=== PATIENT | male | born 1975 | race Caucasian/White ===

== ENCOUNTER 2019-06-15 06:22 | Inpatient (IN) | payer OTHER ==
[2019-06-15] MEDS ORDERED: Sodium Chloride 0.9% 1,000 ML IV ONE (06:29)
[2019-06-15] MEDS ORDERED: Ondansetron 4 MG/2 ML SDV IVPUSH ONE (06:29)
--- NOTE | 2019-06-15 06:48 | EDM.PDOC ---
ED HPI GENERAL MEDICAL PROBLEM - General Chief Complaint: Gastrointestinal Problem Stated Complaint: SEVERE ABDOMINAL PAIN Time Seen by Provider: 06/15/19 06:28 - History of Present Illness INITIAL COMMENTS - FREE TEXT/NARRATIVE: HISTORY AND PHYSICAL: History of present illness: Patient's 44-year-old male with history of alcohol abuse presents with concern abdominal pain 2 days he's had associated nausea and vomiting he denies history of pancreatitis he denies trauma denies fever chills chest pain or shortness of breath Review of systems: As per history of present illness and below otherwise all systems reviewed and negative. Past medical history: As per history of present illness and as reviewed below otherwise noncontributory. Surgical history: As per history of present illness and as reviewed below otherwise noncontributory. Social history: No reported history of drug or alcohol abuse. Family history: As per history of present illness and as reviewed below otherwise noncontributory. Physical exam: HEENT: Atraumatic, normocephalic, pupils reactive, negative for conjunctival pallor or scleral icterus, mucous membranes moist, throat clear, neck supple, nontender, trachea midline. Lungs: Clear to auscultation, breath sounds equal bilaterally, chest nontender. Heart: S1S2, regular, negative for clicks, rubs, or JVD. Abdomen: Soft, protuberant nonlocalized tenderness no rebound or guarding. Negative for masses or hepatosplenomegaly. Negative for costovertebral tenderness. Pelvis: Stable nontender. Genitourinary: Deferred. Rectal: Deferred. Extremities: Atraumatic, negative for cords or calf pain. Neurovascular unremarkable. Neuro: Awake, alert, oriented. Cranial nerves II through XII unremarkable. Cerebellum unremarkable. Motor and sensory unremarkable throughout. Exam nonfocal. Diagnostics: CBC CMP lipase UA urine drug screen chest x-ray CT abdomen and pelvis Therapeutics: Saline 1 L bolus Zofran 4 mg IV Impression: #1 abdominal pain #2 alcohol abuse Definitive disposition and diagnosis as appropriate pending reevaluation and review of above. Middle Abdomen Pain Score (Numeric/FACES): 5 - Related Data Allergies Allergy/AdvReac Type Severity Reaction Status Date / Time No Known Allergies Allergy Verified 06/15/19 06:41 Home Meds: Home Meds . [No Known Home Meds] 06/15/19 [History] Past Medical History - Past Health History Medical/Surgical History: Denies Medical/Surgical History HEENT History: Reports: None Cardiovascular History: Reports: None Respiratory History: Reports: None Gastrointestinal History: Reports: None Genitourinary History: Reports: None Musculoskeletal History: Reports: None Neurological History: Reports: None Psychiatric History: Reports: Anxiety, Depression Endocrine/Metabolic History: Reports: None Hematologic History: Reports: None Immunologic History: Reports: None Oncologic (Cancer) History: Reports: None Dermatologic History: Reports: None - Infectious Disease History Infectious Disease History: Reports: Chicken Pox - Past Surgical History Head Surgeries/Procedures: Reports: None Social & Family History - Tobacco Use Smoking Status *Q: Never Smoker - Recreational Drug Use Recreational Drug Use: No ED ROS GENERAL - Review of Systems Review Of Systems: Comprehensive ROS is negative, except as noted in HPI. ED EXAM, GENERAL - Physical Exam Exam: See Below (See dictation) Course - Vital Signs Last Recorded V/S: Last Vital Signs Temp 35.9 C 06/15/19 06:37 Pulse 84 06/15/19 06:37 Resp 18 06/15/19 06:37 BP 112/64 06/15/19 06:37 Pulse Ox 97 06/15/19 06:37 - Orders/Labs/Meds Orders: Active Orders 24 hr Category Date Time Status cefOXitin [Mefoxin] 2 gm Med 06/15/19 07:40 Ordered Sodium Chloride 0.9% [Normal Saline] 100 ml IV ONETIME Labs: Laboratory Tests 06/15/19 06/15/19 06/15/19 Range/Units 06:37 06:37 06:42 WBC 13.84 H (4.0-11.0) K/uL RBC 4.94 (4.50-5.90) M/uL Hgb 15.6 (13.0-17.0) g/dL Hct 43.9 (38.0-50.0) % MCV 88.9 (80.0-98.0) fL MCH 31.6 (27.0-32.0) pg MCHC 35.5 (31.0-37.0) g/dL RDW Std Deviation 41.0 (28.0-62.0) fl RDW Coeff of Angelito 13 (11.0-15.0) % Plt Count 208 (150-400) K/uL MPV 11.50 (7.40-12.00) fL Neut % (Auto) 84.7 H (48.0-80.0) % Lymph % (Auto) 7.8 L (16.0-40.0) % [place] % (Auto) 7.4 (0.0-15.0) % Eos % (Auto) 0.0 (0.0-7.0) % Baso % (Auto) 0.1 (0.0-1.5) % Neut # (Auto) 11.7 H (1.4-5.7) K/uL Lymph # (Auto) 1.1 (0.6-2.4) K/uL [place] # (Auto) 1.0 H (0.0-0.8) K/uL Eos # (Auto) 0.0 (0.0-0.7) K/uL Baso # (Auto) 0.0 (0.0-0.1) K/uL Nucleated RBC % 0.0 /100WBC Nucleated RBCs # 0 K/uL INR Sodium (136-148) mmol/L Potassium (3.5-5.1) mmol/L Chloride (98-107) mmol/L Carbon Dioxide (21.0-32.0) mmol/L BUN (7.0-18.0) mg/dL Creatinine (0.8-1.3) mg/dL Est Cr Clr Drug Dosing mL/min Estimated GFR (MDRD) ml/min Glucose (74-106) mg/dL Calcium (8.5-10.1) mg/dL Total Bilirubin (0.2-1.0) mg/dL AST (15-37) IU/L ALT (14-63) IU/L Alkaline Phosphatase (46-116) U/L Total Protein (6.4-8.2) g/dL Albumin (3.4-5.0) g/dL Globulin (2.6-4.0) g/dL Albumin/Globulin Ratio (0.9-1.6) Lipase (73-393) U/L Urine Color YELLOW Urine Appearance CLEAR Urine pH 6.0 (5.0-8.0) Ur Specific [place] 1.025 (1.001-1.035) Urine Protein NEGATIVE (NEGATIVE) mg/dL Urine Glucose (UA) NEGATIVE (NEGATIVE) mg/dL Urine Ketones NEGATIVE (NEGATIVE) mg/dL Urine Occult Blood NEGATIVE (NEGATIVE) Urine Nitrite NEGATIVE (NEGATIVE) Urine Bilirubin NEGATIVE (NEGATIVE) Urine Urobilinogen 0.2 (<2.0) EU/dL Ur Leukocyte Esterase NEGATIVE (NEGATIVE) Urine Opiates Screen NEGATIVE (NEGATIVE) Ur Oxycodone Screen NEGATIVE (NEGATIVE) Urine Methadone Screen NEGATIVE (NEGATIVE) Ur Barbiturates Screen NEGATIVE (NEGATIVE) Ur Phencyclidine Scrn NEGATIVE (NEGATIVE) Ur Amphetamine Screen NEGATIVE (NEGATIVE) U Methamphetamines Scrn NEGATIVE (NEGATIVE) U Benzodiazepines Scrn NEGATIVE (NEGATIVE) U Cocaine Metab Screen NEGATIVE (NEGATIVE) U Marijuana (THC) Screen NEGATIVE (NEGATIVE) Ethyl Alcohol mg/dL 06/15/19 06/15/19 Range/Units 06:42 06:42 WBC (4.0-11.0) K/uL RBC (4.50-5.90) M/uL Hgb (13.0-17.0) g/dL Hct (38.0-50.0) % MCV (80.0-98.0) fL MCH (27.0-32.0) pg MCHC (31.0-37.0) g/dL RDW Std Deviation (28.0-62.0) fl RDW Coeff of [place] (11.0-15.0) % Plt Count (150-400) K/uL MPV (7.40-12.00) fL Neut % (Auto) (48.0-80.0) % Lymph % (Auto) (16.0-40.0) % [place] % (Auto) (0.0-15.0) % Eos % (Auto) (0.0-7.0) % Baso % (Auto) (0.0-1.5) % Neut # (Auto) (1.4-5.7) K/uL Lymph # (Auto) (0.6-2.4) K/uL [place] # (Auto) (0.0-0.8) K/uL Eos # (Auto) (0.0-0.7) K/uL Baso # (Auto) (0.0-0.1) K/uL Nucleated RBC % /100WBC Nucleated RBCs # K/uL INR 0.98 Sodium 136 (136-148) mmol/L Potassium 3.6 (3.5-5.1) mmol/L Chloride 102 (98-107) mmol/L Carbon Dioxide 23.5 (21.0-32.0) mmol/L BUN 12 (7.0-18.0) mg/dL Creatinine 1.2 (0.8-1.3) mg/dL Est Cr Clr Drug Dosing 87.12 mL/min Estimated GFR (MDRD) > 60.0 ml/min Glucose 116 H (74-106) mg/dL Calcium 8.8 (8.5-10.1) mg/dL Total Bilirubin 1.0 (0.2-1.0) mg/dL AST 15 (15-37) IU/L ALT 49 (14-63) IU/L Alkaline Phosphatase 77 (46-116) U/L Total Protein 8.1 (6.4-8.2) g/dL Albumin 4.0 (3.4-5.0) g/dL Globulin 4.1 H (2.6-4.0) g/dL Albumin/Globulin Ratio 1.0 (0.9-1.6) Lipase 74 (73-393) U/L Urine Color Urine Appearance Urine pH (5.0-8.0) Ur Specific [place] (1.001-1.035) Urine Protein (NEGATIVE) mg/dL Urine Glucose (UA) (NEGATIVE) mg/dL Urine Ketones (NEGATIVE) mg/dL Urine Occult Blood (NEGATIVE) Urine Nitrite (NEGATIVE) Urine Bilirubin (NEGATIVE) Urine Urobilinogen (<2.0) EU/dL Ur Leukocyte Esterase (NEGATIVE) Urine Opiates Screen (NEGATIVE) Ur Oxycodone Screen (NEGATIVE) Urine Methadone Screen (NEGATIVE) Ur Barbiturates Screen (NEGATIVE) Ur Phencyclidine Scrn (NEGATIVE) Ur Amphetamine Screen (NEGATIVE) U Methamphetamines Scrn (NEGATIVE) U Benzodiazepines Scrn (NEGATIVE) U Cocaine Metab Screen (NEGATIVE) U Marijuana (THC) Screen (NEGATIVE) Ethyl Alcohol < 3.0 mg/dL Meds: Medications Discontinued Medications Generic Name Dose Route Start Last Admin Trade Name Freq PRN Reason Stop Dose Admin Sodium Chloride 1,000 mls @ 999 mls/hr 06/15/19 06:29 06/15/19 06:47 Normal Saline IV 06/15/19 07:29 999 mls/hr STAT ONE Administration Ondansetron HCl 4 mg 06/15/19 06:29 06/15/19 06:47 Zofran IVPUSH 06/15/19 06:30 4 mg ONETIME ONE Administration Departure - Departure Time of Disposition: 06:48 Disposition: Admitted As Inpatient 67 Condition: Good Clinical Impression: Abdominal pain, Alcohol abuse, Appendicitis - Discharge Information Referrals: PCP,None [Primary Care Provider] - Forms: ED Department Discharge - My Orders Last 24 Hours: My Active Orders 06/15/19 07:40 cefOXitin [Mefoxin] 2 gm Sodium Chloride 0.9% [Normal Saline] 100 ml IV ONETIME - Assessment/Plan Last 24 Hours: My Active Orders 06/15/19 07:40 cefOXitin [Mefoxin] 2 gm Sodium Chloride 0.9% [Normal Saline] 100 ml IV ONETIME
[2019-06-15 07:12] LABS: BLOOD UREA NITROGEN,BUN 12 mg/dL (7.0-18.0); CARBON DIOXIDE,CO2 23.5 mmol/L (21.0-32.0); CHLORIDE,CL 102 mmol/L (98-107); GLUCOSE RANDOM 116 mg/dL (74-106); LIPASE 74 U/L (73-393); POTASSIUM,K 3.6 mmol/L (3.5-5.1); SODIUM,NA 136 mmol/L (136-148)
--- NOTE | 2019-06-15 07:35 | CR ---
INDICATION: Chest and abdominal pain. COMPARISON: none TECHNIQUE: PA chest performed at 6:46 a.m. FINDINGS: The lungs are clear. There is no evidence of pneumothorax or free intraperitoneal air. The heart, mediastinum and pulmonary vessels are of normal size. There is no evidence of pleural fluid. IMPRESSION: Negative chest. Dictated by Milton Villarreal MD @ Jun 15 2019 7:33AM Signed by Dr. Milton Villarreal @ Jun 15 2019 7:34AM
--- NOTE | 2019-06-15 07:39 | CT ---
Indication: Abdominal pain Technique: A CT volumetric acquisition was performed of the abdomen and pelvis without IV contrast. Comparison: None Findings: CT images demonstrate a normal appearance of the lung bases. The unenhanced liver, spleen and pancreas appear normal. The gallbladder and bile ducts appear normal. The adrenal glands have normal morphology. Kidneys are symmetric in size and there is no evidence of renal calculus or hydronephrosis. There is no evidence of retroperitoneal lymphadenopathy within the abdomen and pelvis. There is acute inflammation within the appendix with inflammatory stranding within the periappendiceal fat and thickening of the posterior peritoneal surfaces. There is no evidence of abscess formation. There is no evidence of obstruction within the small intestine. The colon appears normal. The prostate gland and urinary bladder appear normal. Impression: Acute appendicitis changes. There is phlegmon formation within the right lower quadrant but no evidence of drainable abscess. Please note that all CT scans at this facility use dose modulation, iterative reconstruction, and/or weight-based dosing when appropriate to reduce radiation dose to as low as reasonably achievable. Dictated by Milton Villarreal MD @ Jun 15 2019 7:34AM Signed by Dr. Milton Villarreal @ Jun 15 2019 7:37AM
[2019-06-15] MEDS ORDERED: cefOXitin 2 GM in Sodium Chloride 0.9% 100 ML IV ONE (07:40)
[2019-06-15] MEDS ORDERED: Piperacillin/Tazobactam 3.375 GM in Sodium Chloride 0.9% 50 ML IV ONE (08:01)
[2019-06-15] MEDS ORDERED: Ondansetron 4 MG/2 ML SDV ONE (08:20)
[2019-06-15] MEDS ORDERED: Rocuronium 100 MG/10 ML Syringe ONE (08:20)
[2019-06-15] MEDS ORDERED: Lidocaine 2% 5 ML SDV ONE (08:20)
[2019-06-15] MEDS ORDERED: fentaNYL 250 MCG/5 ML SDV ONE (08:20)
[2019-06-15] MEDS ORDERED: Midazolam 1 MG/ML 2 ML SDV ONE (08:20)
[2019-06-15] MEDS ORDERED: Propofol 200 MG/20 ML SDV ONE (08:20)
[2019-06-15] MEDS ORDERED: Sodium Chloride 0.9% 2.5 ML Syringe FLUSH PRN (08:44)
[2019-06-15] MEDS ORDERED: Sodium Chloride 0.9% 10 ML Syringe FLUSH PRN (08:44)
[2019-06-15] MEDS ORDERED: Sodium Chloride 0.9% 10 ML SDV IV PRN (08:44)
--- NOTE | 2019-06-15 08:44 | PCM.HP.2 ---
H&P History of Present Illness - General Date of Service: 06/15/19 Admit Problem/Dx: Admission Diagnosis/Problem Admission Diagnosis/Problem Appendicitis Source of Information: Patient History Limitations: Reports: No Limitations - History of Present Illness Initial Comments - Free Text/Narative: Patient is a 44 year old male who developed abdominal yesterday morning. It continued to worsen over the next 24 hours. He stated that driving around was making it worse. He developed nausea, vomiting, and chills. He presented to the ER. He was found to have an elevated WBC with left shift. He had a CT abdomen/ pelvis. This showed appendicitis associated with phlegmon. Middle Abdomen Pain Score (Numeric/FACES): 5 - Related Data Allergies/Adverse Reactions: Allergies Allergy/AdvReac Type Severity Reaction Status Date / Time No Known Allergies Allergy Verified 06/15/19 06:41 Home Medications: Home Meds . [No Known Home Meds] 06/15/19 [History] Past Medical History - Past Health History Medical/Surgical History: Denies Medical/Surgical History HEENT History: Reports: None Cardiovascular History: Reports: None Respiratory History: Reports: None Gastrointestinal History: Reports: None Genitourinary History: Reports: None Musculoskeletal History: Reports: None Neurological History: Reports: None Psychiatric History: Reports: Anxiety, Depression Endocrine/Metabolic History: Reports: None Hematologic History: Reports: None Immunologic History: Reports: None Oncologic (Cancer) History: Reports: None Dermatologic History: Reports: None - Infectious Disease History Infectious Disease History: Reports: Chicken Pox - Past Surgical History Head Surgeries/Procedures: Reports: None Social & Family History - Tobacco Use Smoking Status *Q: Never Smoker - Recreational Drug Use Recreational Drug Use: No H&P Review of Systems - Review of Systems: Review Of Systems: Comprehensive ROS is negative, except as noted in HPI. Exam - Exam Exam: See Below - Vital Signs Vital Signs: Last Vital Signs Temp 36.1 C 06/15/19 08:06 Pulse 98 06/15/19 08:06 Resp 18 06/15/19 06:37 BP 113/75 06/15/19 08:06 Pulse Ox 98 06/15/19 08:06 Weight: 115.4 kg - Exam General: Alert, Oriented HEENT: Conjunctiva Clear, Mucosa Moist & [place], Posterior Pharynx Clear Neck: Supple, Trachea Midline Lungs: Clear to Auscultation, Normal Respiratory Effort Cardiovascular: Regular Rate, Regular Rhythm GI/Abdominal Exam: Soft, Non-Tender, No Distention, No Mass, Other (Umbilical hernia) Back Exam: Normal Inspection Extremities: Normal Inspection - Patient Data Lab Results Last 24 hrs: Laboratory Results - last 24 hr 06/15/19 06/15/19 06/15/19 Range/Units 06:37 06:37 06:42 WBC 13.84 H (4.0-11.0) K/uL RBC 4.94 (4.50-5.90) M/uL Hgb 15.6 (13.0-17.0) g/dL Hct 43.9 (38.0-50.0) % MCV 88.9 (80.0-98.0) fL MCH 31.6 (27.0-32.0) pg MCHC 35.5 (31.0-37.0) g/dL RDW Std Deviation 41.0 (28.0-62.0) fl RDW Coeff of Angel[place] 13 (11.0-15.0) % Plt Count 208 (150-400) K/uL MPV 11.50 (7.40-12.00) fL Neut % (Auto) 84.7 H (48.0-80.0) % Lymph % (Auto) 7.8 L (16.0-40.0) % [place] % (Auto) 7.4 (0.0-15.0) % Eos % (Auto) 0.0 (0.0-7.0) % Baso % (Auto) 0.1 (0.0-1.5) % Neut # (Auto) 11.7 H (1.4-5.7) K/uL Lymph # (Auto) 1.1 (0.6-2.4) K/uL [place] # (Auto) 1.0 H (0.0-0.8) K/uL Eos # (Auto) 0.0 (0.0-0.7) K/uL Baso # (Auto) 0.0 (0.0-0.1) K/uL Nucleated RBC % 0.0 /100WBC Nucleated RBCs # 0 K/uL INR Lactate (0.20-2.00) mmol/L Sodium (136-148) mmol/L Potassium (3.5-5.1) mmol/L Chloride (98-107) mmol/L Carbon Dioxide (21.0-32.0) mmol/L BUN (7.0-18.0) mg/dL Creatinine (0.8-1.3) mg/dL Est Cr Clr Drug Dosing mL/min Estimated GFR (MDRD) ml/min Glucose (74-106) mg/dL Calcium (8.5-10.1) mg/dL Total Bilirubin (0.2-1.0) mg/dL AST (15-37) IU/L ALT (14-63) IU/L Alkaline Phosphatase (46-116) U/L Total Protein (6.4-8.2) g/dL Albumin (3.4-5.0) g/dL Globulin (2.6-4.0) g/dL Albumin/Globulin Ratio (0.9-1.6) Lipase (73-393) U/L Urine Color YELLOW Urine Appearance CLEAR Urine pH 6.0 (5.0-8.0) Ur Specific [place] 1.025 (1.001-1.035) Urine Protein NEGATIVE (NEGATIVE) mg/dL Urine Glucose (UA) NEGATIVE (NEGATIVE) mg/dL Urine Ketones NEGATIVE (NEGATIVE) mg/dL Urine Occult Blood NEGATIVE (NEGATIVE) Urine Nitrite NEGATIVE (NEGATIVE) Urine Bilirubin NEGATIVE (NEGATIVE) Urine Urobilinogen 0.2 (<2.0) EU/dL Ur Leukocyte Esterase NEGATIVE (NEGATIVE) Urine Opiates Screen NEGATIVE (NEGATIVE) Ur Oxycodone Screen NEGATIVE (NEGATIVE) Urine Methadone Screen NEGATIVE (NEGATIVE) Ur Barbiturates Screen NEGATIVE (NEGATIVE) Ur Phencyclidine Scrn NEGATIVE (NEGATIVE) Ur Amphetamine Screen NEGATIVE (NEGATIVE) U Methamphetamines Scrn NEGATIVE (NEGATIVE) U Benzodiazepines Scrn NEGATIVE (NEGATIVE) U Cocaine Metab Screen NEGATIVE (NEGATIVE) U Marijuana (THC) Screen NEGATIVE (NEGATIVE) Ethyl Alcohol mg/dL 06/15/19 06/15/19 06/15/19 Range/Units 06:42 06:42 08:00 WBC (4.0-11.0) K/uL RBC (4.50-5.90) M/uL Hgb (13.0-17.0) g/dL Hct (38.0-50.0) % MCV (80.0-98.0) fL MCH (27.0-32.0) pg MCHC (31.0-37.0) g/dL RDW Std Deviation (28.0-62.0) fl RDW Coeff of [place] (11.0-15.0) % Plt Count (150-400) K/uL MPV (7.40-12.00) fL Neut % (Auto) (48.0-80.0) % Lymph % (Auto) (16.0-40.0) % [place] % (Auto) (0.0-15.0) % Eos % (Auto) (0.0-7.0) % Baso % (Auto) (0.0-1.5) % Neut # (Auto) (1.4-5.7) K/uL Lymph # (Auto) (0.6-2.4) K/uL [place] # (Auto) (0.0-0.8) K/uL Eos # (Auto) (0.0-0.7) K/uL Baso # (Auto) (0.0-0.1) K/uL Nucleated RBC % /100WBC Nucleated RBCs # K/uL INR 0.98 Lactate 1.5 (0.20-2.00) mmol/L Sodium 136 (136-148) mmol/L Potassium 3.6 (3.5-5.1) mmol/L Chloride 102 (98-107) mmol/L Carbon Dioxide 23.5 (21.0-32.0) mmol/L BUN 12 (7.0-18.0) mg/dL Creatinine 1.2 (0.8-1.3) mg/dL Est Cr Clr Drug Dosing 87.12 mL/min Estimated GFR (MDRD) > 60.0 ml/min Glucose 116 H (74-106) mg/dL Calcium 8.8 (8.5-10.1) mg/dL Total Bilirubin 1.0 (0.2-1.0) mg/dL AST 15 (15-37) IU/L ALT 49 (14-63) IU/L Alkaline Phosphatase 77 (46-116) U/L Total Protein 8.1 (6.4-8.2) g/dL Albumin 4.0 (3.4-5.0) g/dL Globulin 4.1 H (2.6-4.0) g/dL Albumin/Globulin Ratio 1.0 (0.9-1.6) Lipase 74 (73-393) U/L Urine Color Urine Appearance Urine pH (5.0-8.0) Ur Specific [place] (1.001-1.035) Urine Protein (NEGATIVE) mg/dL Urine Glucose (UA) (NEGATIVE) mg/dL Urine Ketones (NEGATIVE) mg/dL Urine Occult Blood (NEGATIVE) Urine Nitrite (NEGATIVE) Urine Bilirubin (NEGATIVE) Urine Urobilinogen (<2.0) EU/dL Ur Leukocyte Esterase (NEGATIVE) Urine Opiates Screen (NEGATIVE) Ur Oxycodone Screen (NEGATIVE) Urine Methadone Screen (NEGATIVE) Ur Barbiturates Screen (NEGATIVE) Ur Phencyclidine Scrn (NEGATIVE) Ur Amphetamine Screen (NEGATIVE) U Methamphetamines Scrn (NEGATIVE) U Benzodiazepines Scrn (NEGATIVE) U Cocaine Metab Screen (NEGATIVE) U Marijuana (THC) Screen (NEGATIVE) Ethyl Alcohol < 3.0 mg/dL Result Diagrams: 06/15/19 06:42 06/15/19 06:42 - Problem List (1) Alcohol abuse SNOMED Code(s): 92316064 ICD Code: F10.10 - ALCOHOL ABUSE, UNCOMPLICATED Status: Acute Current Visit: Yes (2) Appendicitis SNOMED Code(s): 15661336 ICD Code: K37 - UNSPECIFIED APPENDICITIS Status: Acute Current Visit: Yes Problem List Initiated/Reviewed/Updated: Yes Orders Last 24hrs: Active Orders 24 hr Category Date Time Status Admission Status [Patient Status] [ADT] Stat ADT 06/15/19 07:49 Active CULTURE BLOOD [BC] Stat Lab 06/15/19 07:51 Received CULTURE BLOOD [BC] Stat Lab 06/15/19 08:00 Received Blood Culture x2 Reflex Set [OM.PC] Stat Oth 06/15/19 07:42 Ordered Assessment/Plan Comment:: Patient and I discussed the pathophysiology of appendicitis. I explained the need for appendectomy. I will attempt it laparoscopically but if I cannot preform it safely we will convert to open. We discussed the risks including bleeding infection or damage to surrounding structures. He verbalized understanding and wishes to proceed.
[2019-06-15] MEDS ORDERED: HYDROmorphone 1 MG/ML Syringe IV PRN (08:45)
[2019-06-15] MEDS ORDERED: Thiamine 500 MG in Sodium Chloride 0.9% 250 ML IV ONE (09:11)
--- NOTE | 2019-06-15 09:28 | PCM.PREANE ---
Preanesthetic Assessment - Anesthesia/Transfusion/Family Hx Anesthesia History: No Prior Anesthesia Family History of Anesthesia Reaction: No - Review of Systems General: No Symptoms Pulmonary: No Symptoms Cardiovascular: No Symptoms Gastrointestinal: No Symptoms Neurological: No Symptoms - Physical Assessment Vital Signs: Last Vital Signs Temp 97.0 F 06/15/19 08:06 Pulse 98 06/15/19 08:06 Resp 18 06/15/19 06:37 BP 113/75 06/15/19 08:06 Pulse Ox 98 06/15/19 08:06 Height: 6 ft Weight: 115.4 kg ASA Class: 2 Mental Status: Alert & Oriented x3 Airway Class: Mallampati = 2 Dentition: Reports: Broken Tooth/Teeth ROM/Head Extension: Full Lungs: Clear to Auscultation, Normal Respiratory Effort Cardiovascular: Regular Rate, Regular Rhythm - Lab Values: Laboratory Last Values WBC 13.84 K/uL (4.0-11.0) H 06/15/19 06:42 RBC 4.94 M/uL (4.50-5.90) 06/15/19 06:42 Hgb 15.6 g/dL (13.0-17.0) 06/15/19 06:42 Hct 43.9 % (38.0-50.0) 06/15/19 06:42 MCV 88.9 fL (80.0-98.0) 06/15/19 06:42 MCH 31.6 pg (27.0-32.0) 06/15/19 06:42 MCHC 35.5 g/dL (31.0-37.0) 06/15/19 06:42 RDW Std Deviation 41.0 fl (28.0-62.0) 06/15/19 06:42 RDW Coeff of Angelito 13 % (11.0-15.0) 06/15/19 06:42 Plt Count 208 K/uL (150-400) 06/15/19 06:42 MPV 11.50 fL (7.40-12.00) 06/15/19 06:42 Neut % (Auto) 84.7 % (48.0-80.0) H 06/15/19 06:42 Lymph % (Auto) 7.8 % (16.0-40.0) L 06/15/19 06:42 [place] % (Auto) 7.4 % (0.0-15.0) 06/15/19 06:42 Eos % (Auto) 0.0 % (0.0-7.0) 06/15/19 06:42 Baso % (Auto) 0.1 % (0.0-1.5) 06/15/19 06:42 Neut # (Auto) 11.7 K/uL (1.4-5.7) H 06/15/19 06:42 Lymph # (Auto) 1.1 K/uL (0.6-2.4) 06/15/19 06:42 [place] # (Auto) 1.0 K/uL (0.0-0.8) H 06/15/19 06:42 Eos # (Auto) 0.0 K/uL (0.0-0.7) 06/15/19 06:42 Baso # (Auto) 0.0 K/uL (0.0-0.1) 06/15/19 06:42 Nucleated RBC % 0.0 /100WBC 06/15/19 06:42 Nucleated RBCs # 0 K/uL 06/15/19 06:42 INR 0.98 06/15/19 06:42 Lactate 1.5 mmol/L (0.20-2.00) 06/15/19 08:00 Sodium 136 mmol/L (136-148) 06/15/19 06:42 Potassium 3.6 mmol/L (3.5-5.1) 06/15/19 06:42 Chloride 102 mmol/L (98-107) 06/15/19 06:42 Carbon Dioxide 23.5 mmol/L (21.0-32.0) 06/15/19 06:42 BUN 12 mg/dL (7.0-18.0) 06/15/19 06:42 Creatinine 1.2 mg/dL (0.8-1.3) 06/15/19 06:42 Est Cr Clr Drug Dosing 87.12 mL/min 06/15/19 06:42 Estimated GFR (MDRD) > 60.0 ml/min 06/15/19 06:42 Glucose 116 mg/dL (74-106) H 06/15/19 06:42 Calcium 8.8 mg/dL (8.5-10.1) 06/15/19 06:42 Total Bilirubin 1.0 mg/dL (0.2-1.0) 06/15/19 06:42 AST 15 IU/L (15-37) 06/15/19 06:42 ALT 49 IU/L (14-63) 06/15/19 06:42 Alkaline Phosphatase 77 U/L (46-116) 06/15/19 06:42 Total Protein 8.1 g/dL (6.4-8.2) 06/15/19 06:42 Albumin 4.0 g/dL (3.4-5.0) 06/15/19 06:42 Globulin 4.1 g/dL (2.6-4.0) H 06/15/19 06:42 Albumin/Globulin Ratio 1.0 (0.9-1.6) 06/15/19 06:42 Lipase 74 U/L (73-393) 06/15/19 06:42 Urine Color YELLOW 06/15/19 06:37 Urine Appearance CLEAR 06/15/19 06:37 Urine pH 6.0 (5.0-8.0) 06/15/19 06:37 Ur Specific [place] 1.025 (1.001-1.035) 06/15/19 06:37 Urine Protein NEGATIVE mg/dL (NEGATIVE) 06/15/19 06:37 Urine Glucose (UA) NEGATIVE mg/dL (NEGATIVE) 06/15/19 06:37 Urine Ketones NEGATIVE mg/dL (NEGATIVE) 06/15/19 06:37 Urine Occult Blood NEGATIVE (NEGATIVE) 06/15/19 06:37 Urine Nitrite NEGATIVE (NEGATIVE) 06/15/19 06:37 Urine Bilirubin NEGATIVE (NEGATIVE) 06/15/19 06:37 Urine Urobilinogen 0.2 EU/dL (<2.0) 06/15/19 06:37 Ur Leukocyte Esterase NEGATIVE (NEGATIVE) 06/15/19 06:37 Urine Opiates Screen NEGATIVE (NEGATIVE) 06/15/19 06:37 Ur Oxycodone Screen NEGATIVE (NEGATIVE) 06/15/19 06:37 Urine Methadone Screen NEGATIVE (NEGATIVE) 06/15/19 06:37 Ur Barbiturates Screen NEGATIVE (NEGATIVE) 06/15/19 06:37 Ur Phencyclidine Scrn NEGATIVE (NEGATIVE) 06/15/19 06:37 Ur Amphetamine Screen NEGATIVE (NEGATIVE) 06/15/19 06:37 U Methamphetamines Scrn NEGATIVE (NEGATIVE) 06/15/19 06:37 U Benzodiazepines Scrn NEGATIVE (NEGATIVE) 06/15/19 06:37 U Cocaine Metab Screen NEGATIVE (NEGATIVE) 06/15/19 06:37 U Marijuana (THC) Screen NEGATIVE (NEGATIVE) 06/15/19 06:37 Ethyl Alcohol < 3.0 mg/dL 06/15/19 06:42 - Allergies Allergies/Adverse Reactions: Allergies Allergy/AdvReac Type Severity Reaction Status Date / Time No Known Allergies Allergy Verified 06/15/19 06:41 - Blood Blood Available: No - Anesthesia Plan Pre-Op Medication Ordered: None - Acknowledgements Anesthesia Type Planned: General Anesthesia Pt an Appropriate Candidate for the Planned Anesthesia: Yes Alternatives and Risks of Anesthesia Discussed w Pt/Guardian: Yes Pt/Guardian Understands and Agrees with Anesthesia Plan: Yes Additional Comments: PMH: active severe alcohol use disorder, no drink x 2 days, no hx of withdrawl seizures, no known variceal or liver dz plan: iv thiamine, get PreAnesthesia Questionnaire - Past Health History Medical/Surgical History: Denies Medical/Surgical History HEENT History: Reports: None Cardiovascular History: Reports: None Respiratory History: Reports: None Gastrointestinal History: Reports: None Genitourinary History: Reports: None Musculoskeletal History: Reports: None Neurological History: Reports: None Psychiatric History: Reports: Anxiety, Depression Endocrine/Metabolic History: Reports: None Hematologic History: Reports: None Immunologic History: Reports: None Oncologic (Cancer) History: Reports: None Dermatologic History: Reports: None - Infectious Disease History Infectious Disease History: Reports: Chicken Pox - Past Surgical History Head Surgeries/Procedures: Reports: None - SUBSTANCE USE Smoking Status *Q: Never Smoker Recreational Drug Use History: No - HOME MEDS Home Medications: Home Meds . [No Known Home Meds] 06/15/19 [History] - CURRENT (IN HOUSE) MEDS Current Meds: Current Medications Hydromorphone HCl (Dilaudid) 0.5 mg IV Q1H PRN PRN Reason: Pain Lactated Ringer's (Ringers, Lactated) 1,000 mls @ 125 mls/hr IV ASDIRECTED VANNESSA Thiamine HCl 500 mg/ Sodium (Chloride) 255 mls @ 510 mls/hr IV ONETIME ONE Stop: 06/15/19 09:40 Sodium Chloride (Saline Flush) 10 ml FLUSH ASDIRECTED PRN PRN Reason: Keep Vein Open Sodium Chloride (Saline Flush) 2.5 ml FLUSH ASDIRECTED PRN PRN Reason: Keep Vein Open Sodium Chloride (Normal Saline) 10 ml IV ASDIRECTED PRN PRN Reason: IV Use Discontinued Medications Fentanyl (Sublimaze) Confirm Administered Dose 250 mcg .ROUTE .STK-MED ONE Stop: 06/15/19 08:21 Sodium Chloride (Normal Saline) 1,000 mls @ 999 mls/hr IV STAT ONE Stop: 06/15/19 07:29 Last Admin: 06/15/19 06:47 Dose: 999 mls/hr Piperacillin Sod/Tazobactam (Sod 3.375 gm/ Sodium Chloride) 50 mls @ 100 mls/ hr IV ONETIME ONE Stop: 06/15/19 08:30 Last Admin: 06/15/19 08:09 Dose: 100 mls/hr Lidocaine (Xylocaine-Mpf 2%) Confirm Administered Dose 5 ml .ROUTE .STK-MED ONE Stop: 06/15/19 08:21 Midazolam HCl (Versed 1 Mg/Ml) Confirm Administered Dose 2 mg .ROUTE .STK-MED ONE Stop: 06/15/19 08:21 Ondansetron HCl (Zofran) 4 mg IVPUSH ONETIME ONE Stop: 06/15/19 06:30 Last Admin: 06/15/19 06:47 Dose: 4 mg Ondansetron HCl (Zofran) Confirm Administered Dose 4 mg .ROUTE .STK-MED ONE Stop: 06/15/19 08:21 Propofol (Diprivan 20 Ml) Confirm Administered Dose 200 mg .ROUTE .STK-MED ONE Stop: 06/15/19 08:21 Rocuronium [place] (Zemuron) Confirm Administered Dose 100 mg .ROUTE .STK-MED ONE Stop: 06/15/19 08:21 Succinylcholine Chloride (Succinylcholine Chloride) Confirm Administered Dose 200 mg .ROUTE .STK-MED ONE Stop: 06/15/19 08:21
[2019-06-15] MEDS ORDERED: Bupivacaine 0.5% 10 ML SDV ONE ×2 (09:49→10:41)
[2019-06-15] MEDS ORDERED: Mineral Oil/Petrolatum Ophth Oint 3.5 GM Tube ONE (10:22)
[2019-06-15] MEDS ORDERED: EPINEPHrine 1:10,000 1 MG/10 ML Syringe IVPUSH PRN (10:31)
[2019-06-15] MEDS ORDERED: 50% Dextrose in Water 50 ML Syringe IVPUSH PRN (10:31)
[2019-06-15] MEDS ORDERED: Atropine 0.1 MG/ML 10 ML Syringe IVPUSH PRN ×2 (10:31)
[2019-06-15] MEDS ORDERED: Naloxone 0.4 MG/ML Syringe IVPUSH PRN (10:31)
[2019-06-15] MEDS ORDERED: Albuterol 0.083% 2.5 MG/3 ML Neb Soln NEB PRN (10:31)
[2019-06-15] MEDS ORDERED: fentaNYL 100 MCG/2 ML SDV IVPUSH PRN (10:31)
[2019-06-15] MEDS ORDERED: Phenylephrine/Normal Saline 100 MCG/ML 10 ML Syringe ONE (10:33)
[2019-06-15] MEDS ORDERED: fentaNYL 100 MCG/2 ML SDV ONE (11:01)
[2019-06-15] MEDS ORDERED: ePHEDrine 50 MG/ML SDV ONE (11:02)
[2019-06-15] MEDS ORDERED: ceFAZolin 1 GM Vial ONE (11:40)
[2019-06-15] MEDS ORDERED: Ondansetron 4 MG/2 ML SDV IVPUSH PRN (12:40)
[2019-06-15] MEDS ORDERED: diphenhydrAMINE 50 MG/ML SDV IVPUSH PRN (12:40)
[2019-06-15] MEDS ORDERED: Bisacodyl 5 MG Tab PO PRN (12:40)
[2019-06-15] MEDS ORDERED: HYDROmorphone 1 MG/ML Syringe IVPUSH PRN (12:40)
[2019-06-15] MEDS ORDERED: Promethazine 25 MG/ML SDV IM PRN (12:40)
--- NOTE | 2019-06-15 12:48 | PCM.OPNOTE ---
- General Post-Op/Procedure Note Date of Surgery/Procedure: 06/15/19 Operative Procedure(s): Laparoscopic converted to open appendectomy Findings: Necrotic retrocecal perforated appendix encased in inflammatory rind and small bowel. Pre Op Diagnosis: Appendicitis Post-Op Diagnosis: Necrotic appendicitis, perforated Anesthesia Technique: General ET Tube Primary Surgeon: Brit Alas Fluid Replacement, Intraop: 2,300 Condition: Good
--- NOTE | 2019-06-15 13:32 | PCM.POSTAN ---
POST ANESTHESIA ASSESSMENT - MENTAL STATUS Mental Status: Alert, Oriented - VITAL SIGNS Vital Signs: Last Vital Signs Temp 97.2 F 06/15/19 12:49 Pulse 80 06/15/19 13:15 Resp 25 H 06/15/19 13:15 BP 124/67 06/15/19 13:15 Pulse Ox 93 L 06/15/19 13:15 - RESPIRATORY Respiratory Status: Respiratory Rate WNL, Airway Patent, O2 Saturation Stable - CARDIOVASCULAR CV Status: Pulse Rate WNL, Blood Pressure Stable - GASTROINTESTINAL GI Status: No Symptoms - POST OP HYDRATION Hydration Status: Adequate & Stable
[2019-06-15] MEDS: Piperacillin/Tazobactam 3.375 GM in Sodium Chloride 0.9% 50 ML IV SCH ×2 (13:53→19:58)
[2019-06-15] MEDS: Lactated Ringers 1,000 ML IV SCH ×2 (13:56→17:23)
[2019-06-15 15:30] LABS: BLOOD UREA NITROGEN,BUN 12 mg/dL (7.0-18.0); CARBON DIOXIDE,CO2 25.5 mmol/L (21.0-32.0); CHLORIDE,CL 105 mmol/L (98-107); GLUCOSE RANDOM 124 mg/dL (74-106); POTASSIUM,K 3.8 mmol/L (3.5-5.1); SODIUM,NA 137 mmol/L (136-148)
[2019-06-15] MEDS: Acetaminophen/oxyCODONE 325-5 MG Tab PO PRN ×2 (15:31→19:58)
[2019-06-16] MEDS: Lactated Ringers 1,000 ML IV SCH (00:36)
[2019-06-16] MEDS: Acetaminophen/oxyCODONE 325-5 MG Tab PO PRN ×3 (00:37→08:08)
[2019-06-16] MEDS: Piperacillin/Tazobactam 3.375 GM in Sodium Chloride 0.9% 50 ML IV SCH ×4 (01:42→19:27)
[2019-06-16] MEDS: Omeprazole 20 MG Cap.CR PO SCH (07:10)
[2019-06-16] MEDS: Multivitamin Tab PO SCH (08:03)
--- NOTE | 2019-06-16 09:46 | PCM.SURGPN ---
- General Info Date of Service: 06/16/19 Date of Surgery/Procedure: 06/15/19 POD#: 1 Functional Status: Reports: Pain Controlled, Tolerating Diet, Ambulating, Urinating, Other - Review of Systems General: Reports: No Symptoms HEENT: Reports: No Symptoms Pulmonary: Reports: No Symptoms Cardiovascular: Reports: No Symptoms Gastrointestinal: Reports: Flatus, Other (distended abdomen ) Genitourinary: Reports: No Symptoms - Patient Data Vitals - Most Recent: Last Vital Signs Temp 36.5 C 06/16/19 08:00 Pulse 83 06/16/19 08:00 Resp 16 06/16/19 08:00 BP 121/75 06/16/19 08:00 Pulse Ox 94 L 06/16/19 08:00 Weight - Most Recent: 115.4 kg I&O - Last 24 Hours: Intake & Output 06/15/19 06/16/19 06/16/19 22:59 06:59 14:59 Intake Total 737 2684 50 Output Total 320 1090 Balance 417 1594 50 Lab Results Last 24 Hrs: Laboratory Results - last 24 hr 06/15/19 06/15/19 06/15/19 Range/Units 14:20 14:20 14:20 WBC 11.89 H (4.0-11.0) K/uL RBC 4.40 L (4.50-5.90) M/uL Hgb 13.6 (13.0-17.0) g/dL Hct 39.7 (38.0-50.0) % MCV 90.2 (80.0-98.0) fL MCH 30.9 (27.0-32.0) pg MCHC 34.3 (31.0-37.0) g/dL RDW Std Deviation 42.1 (28.0-62.0) fl RDW Coeff of Angelito 13 (11.0-15.0) % Plt Count 161 (150-400) K/uL MPV 11.40 (7.40-12.00) fL Neut % (Auto) 94.0 H (48.0-80.0) % Lymph % (Auto) 3.2 L (16.0-40.0) % [place] % (Auto) 2.8 (0.0-15.0) % Eos % (Auto) 0.0 (0.0-7.0) % Baso % (Auto) 0.0 (0.0-1.5) % Neut # (Auto) 11.2 H (1.4-5.7) K/uL Lymph # (Auto) 0.4 L (0.6-2.4) K/uL [place] # (Auto) 0.3 (0.0-0.8) K/uL Eos # (Auto) 0.0 (0.0-0.7) K/uL Baso # (Auto) 0.0 (0.0-0.1) K/uL Nucleated RBC % 0.0 /100WBC Nucleated RBCs # 0 K/uL Sodium 137 (136-148) mmol/L Potassium 3.8 (3.5-5.1) mmol/L Chloride 105 (98-107) mmol/L Carbon Dioxide 25.5 (21.0-32.0) mmol/L BUN 12 (7.0-18.0) mg/dL Creatinine 1.0 (0.8-1.3) mg/dL Est Cr Clr Drug Dosing 104.54 mL/min Estimated GFR (MDRD) > 60.0 ml/min Glucose 124 H (74-106) mg/dL Calcium 7.8 L (8.5-10.1) mg/dL B-Natriuretic Peptide 71 (<100) PG/ML 06/16/19 Range/Units 06:20 WBC 10.31 (4.0-11.0) K/uL RBC 4.03 L (4.50-5.90) M/uL Hgb 12.4 L (13.0-17.0) g/dL Hct 37.1 L (38.0-50.0) % MCV 92.1 (80.0-98.0) fL MCH 30.8 (27.0-32.0) pg MCHC 33.4 (31.0-37.0) g/dL RDW Std Deviation 43.5 (28.0-62.0) fl RDW Coeff of Angel[place] 13 (11.0-15.0) % Plt Count 162 (150-400) K/uL MPV 11.30 (7.40-12.00) fL Neut % (Auto) (48.0-80.0) % Lymph % (Auto) (16.0-40.0) % [place] % (Auto) (0.0-15.0) % Eos % (Auto) (0.0-7.0) % Baso % (Auto) (0.0-1.5) % Neut # (Auto) (1.4-5.7) K/uL Lymph # (Auto) (0.6-2.4) K/uL [place] # (Auto) (0.0-0.8) K/uL Eos # (Auto) (0.0-0.7) K/uL Baso # (Auto) (0.0-0.1) K/uL Nucleated RBC % 0.0 /100WBC Nucleated RBCs # 0 K/uL Sodium (136-148) mmol/L Potassium (3.5-5.1) mmol/L Chloride (98-107) mmol/L Carbon Dioxide (21.0-32.0) mmol/L BUN (7.0-18.0) mg/dL Creatinine (0.8-1.3) mg/dL Est Cr Clr Drug Dosing mL/min Estimated GFR (MDRD) ml/min Glucose (74-106) mg/dL Calcium (8.5-10.1) mg/dL B-Natriuretic Peptide (<100) PG/ML Azam Results Last 24 Hrs: Microbiology 06/15/19 08:00 Aerobic Blood Culture - Preliminary Blood - Venous - Lab Draw NO GROWTH AFTER 1 DAY Anaerobic Blood Culture - Preliminary NO GROWTH AFTER 1 DAY 06/15/19 07:51 Aerobic Blood Culture - Preliminary Blood - Venous NO GROWTH AFTER 1 DAY Anaerobic Blood Culture - Preliminary NO GROWTH AFTER 1 DAY Med Orders - Current: Current Medications Albuterol (Proventil Neb Soln) 2.5 mg NEB ONETIME PRN PRN Reason: Wheezing Atropine Sulfate (Atropine 0.1 Mg/Ml) 0.5 mg IVPUSH ASDIRECTED PRN PRN Reason: Hypo-perfusion Atropine Sulfate (Atropine 0.1 Mg/Ml) 1 mg IVPUSH ASDIRECTED PRN PRN Reason: Hypo-Perfusion Bisacodyl (Dulcolax) 5 mg PO DAILY PRN PRN Reason: Constipation Dextrose/Water (Dextrose 50% In Water) 50 ml IVPUSH ASDIRECTED PRN PRN Reason: Hypoglycemia Diphenhydramine HCl (Benadryl) 25 mg IVPUSH Q4H PRN PRN Reason: Itching Epinephrine HCl (Epinephrine 1:10,000) 1 mg IVPUSH ASDIRECTED PRN PRN Reason: ACLS Guidelines Fentanyl (Sublimaze) 50 mcg IVPUSH Q5M PRN PRN Reason: Pain Hydromorphone HCl (Dilaudid) 0.5 mg IV Q1H PRN PRN Reason: Pain Hydromorphone HCl (Dilaudid) 0.5 mg IVPUSH Q1H PRN PRN Reason: Pain (severe 7-10) Last Admin: 06/15/19 17:27 Dose: 0.5 mg Piperacillin Sod/Tazobactam (Sod 3.375 gm/ Sodium Chloride) 50 mls @ 100 mls/ hr IV Q6H [facility] Last Admin: 06/16/19 08:03 Dose: 100 mls/hr Multivitamins/Minerals/Vitamin C (Tab-A-Caprice) 1 tab PO DAILY [facility] Last Admin: 06/16/19 08:03 Dose: 1 tab Naloxone HCl (Narcan) 0.1 mg IVPUSH ASDIRECTED PRN PRN Reason: Respiratory Depression Omeprazole (Omeprazole) 20 mg PO ACBREAKFAST [facility] Last Admin: 06/16/19 07:10 Dose: 20 mg Ondansetron HCl (Zofran) 4 mg IVPUSH Q6H PRN PRN Reason: Nausea/Vomiting Oxycodone/Acetaminophen (Percocet 325-5 Mg) 2 tab PO Q4H PRN PRN Reason: Pain (moderate 4-6) Last Admin: 06/16/19 08:08 Dose: 2 tab Promethazine HCl (Phenergan) 25 mg IM Q6H PRN PRN Reason: Nausea Sodium Chloride (Saline Flush) 10 ml FLUSH ASDIRECTED PRN PRN Reason: Keep Vein Open Sodium Chloride (Saline Flush) 2.5 ml FLUSH ASDIRECTED PRN PRN Reason: Keep Vein Open Sodium Chloride (Normal Saline) 10 ml IV ASDIRECTED PRN PRN Reason: IV Use Discontinued Medications Bupivacaine HCl (Sensorcaine-Mpf 0.5%) Confirm Administered Dose 10 ml .ROUTE .STK-MED ONE Stop: 06/15/19 09:50 Bupivacaine HCl (Sensorcaine-Mpf 0.5%) Confirm Administered Dose 10 ml .ROUTE .STK-MED ONE Stop: 06/15/19 10:42 Cefazolin Sodium (Ancef) Confirm Administered Dose 1 gm .ROUTE .STK-MED ONE Stop: 06/15/19 11:41 Ephedrine Sulfate (Ephedrine Sulfate) Confirm Administered Dose 50 mg .ROUTE .STK-MED ONE Stop: 06/15/19 11:03 Fentanyl (Sublimaze) Confirm Administered Dose 250 mcg .ROUTE .STK-MED ONE Stop: 06/15/19 08:21 Fentanyl (Sublimaze) Confirm Administered Dose 100 mcg .ROUTE .STK-MED ONE Stop: 06/15/19 11:02 Sodium Chloride (Normal Saline) 1,000 mls @ 999 mls/hr IV STAT ONE Stop: 06/15/19 07:29 Last Admin: 06/15/19 06:47 Dose: 999 mls/hr Piperacillin Sod/Tazobactam (Sod 3.375 gm/ Sodium Chloride) 50 mls @ 100 mls/ hr IV ONETIME ONE Stop: 06/15/19 08:30 Last Admin: 06/15/19 08:09 Dose: 100 mls/hr Lactated Ringer's (Ringers, Lactated) 1,000 mls @ 150 mls/hr IV ASDIRECTED VANNESSA Last Admin: 06/16/19 00:36 Dose: 150 mls/hr Thiamine HCl 500 mg/ Sodium (Chloride) 255 mls @ 510 mls/hr IV ONETIME ONE Stop: 06/15/19 09:40 Last Admin: 06/15/19 09:45 Dose: 510 mls/hr Lidocaine (Xylocaine-Mpf 2%) Confirm Administered Dose 5 ml .ROUTE .STK-MED ONE Stop: 06/15/19 08:21 Midazolam HCl (Versed 1 Mg/Ml) Confirm Administered Dose 2 mg .ROUTE .STK-MED ONE Stop: 06/15/19 08:21 Mineral Oil/White Petrolatum (Lacri-Lube S.O.P Oint) Confirm Administered Dose 3.5 gm .ROUTE .STK-MED ONE Stop: 06/15/19 10:23 Ondansetron HCl (Zofran) 4 mg IVPUSH ONETIME ONE Stop: 06/15/19 06:30 Last Admin: 06/15/19 06:47 Dose: 4 mg Ondansetron HCl (Zofran) Confirm Administered Dose 4 mg .ROUTE .STK-MED ONE Stop: 06/15/19 08:21 Phenylephrine HCl (Phenylephrine In Ns 100 Mcg/Ml) Confirm Administered Dose 1 mg .ROUTE .STK-MED ONE Stop: 06/15/19 10:34 Propofol (Diprivan 20 Ml) Confirm Administered Dose 200 mg .ROUTE .STK-MED ONE Stop: 06/15/19 08:21 Rocuronium [place] (Zemuron) Confirm Administered Dose 100 mg .ROUTE .STK-MED ONE Stop: 06/15/19 08:21 Succinylcholine Chloride (Succinylcholine Chloride) Confirm Administered Dose 200 mg .ROUTE .STK-MED ONE Stop: 06/15/19 08:21 - Exam Wound/Incisions: Healing Well, Drainage (small amount of drainage ( serosanguinous) on dressings ) General: Alert, Oriented, Cooperative HEENT: Pupils Equal, Pupils Reactive Lungs: Normal Respiratory Effort Cardiovascular: Regular Rate GI/Abdominal Exam: Soft, Non-Tender, Distended - Problem List & Annotations (1) Alcohol abuse SNOMED Code(s): 76653069 Code(s): F10.10 - ALCOHOL ABUSE, UNCOMPLICATED Status: Acute Current Visit: Yes (2) Appendicitis SNOMED Code(s): 97314014 Code(s): K37 - UNSPECIFIED APPENDICITIS Status: Acute Current Visit: Yes - Problem List Review Problem List Initiated/Reviewed/Updated: Yes - My Orders Last 24 Hours: Active Orders 24 hr Category Date Time Status Patient Status [ADT] Routine ADT 06/15/19 12:40 Active Antiembolic Devices [RC] PER UNIT ROUTINE Care 06/15/19 08:45 Active Blood Glucose Check, Bedside [RC] PRN Care 06/15/19 10:31 Active CIWAA Assessment [RC] Q4H Care 06/15/19 16:00 Active DC Melara Catheter [Urinary Catheter Removal] [RC] Per Care 06/15/19 22:53 Active Unit Routine Intake and Output [RC] Q4HR Care 06/15/19 12:41 Active Oxygen Therapy [RC] PRN Care 06/15/19 10:31 Active Oxygen Therapy [RC] PRN Care 06/15/19 12:40 Active RT Aerosol Therapy [RC] ASDIRECTED Care 06/15/19 10:31 Active RT Aerosol Therapy [RC] ASDIRECTED Care 06/15/19 10:31 Active RT Incentive Spirometry [RC] Q1HWA Care 06/15/19 12:40 Active Up ad Patricia [RC] ASDIRECTED Care 06/15/19 08:47 Active Urinary Catheter Assessment [RC] ASDIRECTED Care 06/15/19 12:40 Active Vital Signs [RC] PER UNIT ROUTINE Care 06/15/19 12:40 Active Clear Liquid Diet [DIET] Diet 06/15/19 Lunch Active CBC W/O DIFF,HEMOGRAM [HEME] AM Lab 06/17/19 05:11 Ordered CBC W/O DIFF,HEMOGRAM [HEME] AM Lab 06/18/19 05:11 Ordered CBC W/O DIFF,HEMOGRAM [HEME] AM Lab 06/19/19 05:11 Ordered CBC W/O DIFF,HEMOGRAM [HEME] AM Lab 06/20/19 05:11 Ordered CBC W/O DIFF,HEMOGRAM [HEME] AM Lab 06/21/19 05:11 Ordered Acetaminophen/oxyCODONE [Percocet 325-5 MG] Med 06/15/19 12:40 Active 2 tab PO Q4H PRN Albuterol [Proventil Neb Soln] Med 06/15/19 10:31 Active 2.5 mg NEB ONETIME PRN Atropine [Atropine 0.1 MG/ML] Med 06/15/19 10:31 Active 0.5 mg IVPUSH ASDIRECTED PRN Atropine [Atropine 0.1 MG/ML] Med 06/15/19 10:31 Active 1 mg IVPUSH ASDIRECTED PRN Bisacodyl [Dulcolax] Med 06/15/19 12:40 Active 5 mg PO DAILY PRN Dextrose 50% in Water Med 06/15/19 10:31 Active 50 ml IVPUSH ASDIRECTED PRN EPINEPHrine [EPINEPHrine 1:10,000] Med 06/15/19 10:31 Active 1 mg IVPUSH ASDIRECTED PRN HYDROmorphone [Dilaudid] Med 06/15/19 08:45 Active 0.5 mg IV Q1H PRN HYDROmorphone [Dilaudid] Med 06/15/19 12:40 Active 0.5 mg IVPUSH Q1H PRN Multivitamins [Tab-A-Caprice] Med 06/16/19 09:00 Active 1 tab PO DAILY Naloxone [Narcan] Med 06/15/19 10:31 Active 0.1 mg IVPUSH ASDIRECTED PRN Omeprazole Med 06/16/19 07:30 Active 20 mg PO ACBREAKFAST Ondansetron [Zofran] Med 06/15/19 12:40 Active 4 mg IVPUSH Q6H PRN Piperacillin/Tazobactam [Piperacil-Tazobact] 3.375 gm Med 06/15/19 14:00 Active Sodium Chloride 0.9% [Normal Saline] 50 ml IV Q6H Promethazine [Phenergan] Med 06/15/19 12:40 Active 25 mg IM Q6H PRN Sodium Chloride 0.9% [Normal Saline] Med 06/15/19 08:44 Active 10 ml IV ASDIRECTED PRN Sodium Chloride 0.9% [Saline Flush] Med 06/15/19 08:44 Active 10 ml FLUSH ASDIRECTED PRN Sodium Chloride 0.9% [Saline Flush] Med 06/15/19 08:44 Active 2.5 ml FLUSH ASDIRECTED PRN diphenhydrAMINE [Benadryl] Med 06/15/19 12:40 Active 25 mg IVPUSH Q4H PRN fentaNYL [Sublimaze] Med 06/15/19 10:31 Active 50 mcg IVPUSH Q5M PRN ED Alcohol and Substance Abuse Reflex [OM.PC] Click To Oth 06/15/19 08:47 Ordered Edit Peripheral IV Insertion Adult [OM.PC] Routine Oth 06/15/19 08:44 Ordered Sequential Compression Device [OM.PC] Routine Oth 06/15/19 08:44 Ordered Resuscitation Status Routine Resus Stat 06/15/19 08:44 Ordered Medication Orders Albuterol (Proventil Neb Soln) 2.5 mg NEB ONETIME PRN PRN Reason: Wheezing Atropine Sulfate (Atropine 0.1 Mg/Ml) 0.5 mg IVPUSH ASDIRECTED PRN PRN Reason: Hypo-perfusion Atropine Sulfate (Atropine 0.1 Mg/Ml) 1 mg IVPUSH ASDIRECTED PRN PRN Reason: Hypo-Perfusion Bisacodyl (Dulcolax) 5 mg PO DAILY PRN PRN Reason: Constipation Dextrose/Water (Dextrose 50% In Water) 50 ml IVPUSH ASDIRECTED PRN PRN Reason: Hypoglycemia Diphenhydramine HCl (Benadryl) 25 mg IVPUSH Q4H PRN PRN Reason: Itching Epinephrine HCl (Epinephrine 1:10,000) 1 mg IVPUSH ASDIRECTED PRN PRN Reason: ACLS Guidelines Fentanyl (Sublimaze) 50 mcg IVPUSH Q5M PRN PRN Reason: Pain Hydromorphone HCl (Dilaudid) 0.5 mg IV Q1H PRN PRN Reason: Pain Hydromorphone HCl (Dilaudid) 0.5 mg IVPUSH Q1H PRN PRN Reason: Pain (severe 7-10) Last Admin: 06/15/19 17:27 Dose: 0.5 mg Piperacillin Sod/Tazobactam (Sod 3.375 gm/ Sodium Chloride) 50 mls @ 100 mls/ hr IV Q6H [facility] Last Admin: 06/16/19 08:03 Dose: 100 mls/hr Infusion: 06/16/19 02:12 Dose: 100 mls/hr Admin: 06/16/19 01:42 Dose: 100 mls/hr Infusion: 06/15/19 20:28 Dose: 100 mls/hr Admin: 06/15/19 19:58 Dose: 100 mls/hr Infusion: 06/15/19 14:23 Dose: 100 mls/hr Admin: 06/15/19 13:53 Dose: 100 mls/hr Multivitamins/Minerals/Vitamin C (Tab-A-Caprice) 1 tab PO DAILY [facility] Last Admin: 06/16/19 08:03 Dose: 1 tab Naloxone HCl (Narcan) 0.1 mg IVPUSH ASDIRECTED PRN PRN Reason: Respiratory Depression Omeprazole (Omeprazole) 20 mg PO ACBREAKFAST [facility] Last Admin: 06/16/19 07:10 Dose: 20 mg Ondansetron HCl (Zofran) 4 mg IVPUSH Q6H PRN PRN Reason: Nausea/Vomiting Oxycodone/Acetaminophen (Percocet 325-5 Mg) 2 tab PO Q4H PRN PRN Reason: Pain (moderate 4-6) Last Admin: 06/16/19 08:08 Dose: 2 tab Admin: 06/16/19 04:36 Dose: 2 tab Admin: 06/16/19 00:37 Dose: 2 tab Admin: 06/15/19 19:58 Dose: 2 tab Admin: 06/15/19 15:31 Dose: 2 tab Promethazine HCl (Phenergan) 25 mg IM Q6H PRN PRN Reason: Nausea Sodium Chloride (Saline Flush) 10 ml FLUSH ASDIRECTED PRN PRN Reason: Keep Vein Open Sodium Chloride (Saline Flush) 2.5 ml FLUSH ASDIRECTED PRN PRN Reason: Keep Vein Open Sodium Chloride (Normal Saline) 10 ml IV ASDIRECTED PRN PRN Reason: IV Use - Plan Plan (Free Text/Narrative):: Patient is distended today, however he started passing gas this morning. He is tolerating a clear diet and denies any nausea or vomiting. VSS overnight. UOP good and BUN/Cr stable so melara catheter removed. Pain: To decrease opioid use will schedule IV toradol. Prn percocet and IV dilaudid. No need for ativan or CIWAA measures as of yet. CV/Pulm: VSS. Encourage IS use and OOB activity. GI: Will stay with clear liquid diet today given his abdominal distension. Scheduling bowel regiment of dulcolax and miralax. Continue MTV daily. Renal: UOP adequate. BUN/Cr stable. D/C IVF ID: WBC within normal limits but will stay with IV meds for today given his abdominal distension. Recheck CBC in am. If stable and distension improved will switch to oral antibiotics. Px: SCDs, lovenox to start today. GI px omeprazole.
--- NOTE | 2019-06-16 10:03 | PCM48HPAN ---
Post Anesthesia Note - EVALUATION WITHIN 48HRS OF ANESTHETIC Vital Signs in Normal Range: Yes Patient Participated in Evaluation: Yes Respiratory Function Stable: Yes Airway Patent: Yes Cardiovascular Function Stable: Yes Hydration Status Stable: Yes Pain Control Satisfactory: Yes Nausea and Vomiting Control Satisfactory: Yes Mental Status Recovered: Yes Vital Signs: Last Vital Signs Temp 36.5 C 06/16/19 08:00 Pulse 83 06/16/19 08:00 Resp 16 06/16/19 08:00 BP 121/75 06/16/19 08:00 Pulse Ox 94 L 06/16/19 08:00 - COMMENTS/OBSERVATIONS Free Text/Narrative:: Doing well. No problems noted at present.
[2019-06-16] MEDS: Ketorolac 30 MG/ML SDV IVPUSH SCH ×3 (10:17→21:11)
[2019-06-16] MEDS: Bisacodyl 5 MG Tab PO SCH (10:18)
[2019-06-16] MEDS: Polyethylene Glycol 3350 Powder 17 GM Packet PO SCH (21:17)
[2019-06-17] MEDS: Acetaminophen/oxyCODONE 325-5 MG Tab PO PRN ×3 (01:47→20:34)
[2019-06-17] MEDS: Piperacillin/Tazobactam 3.375 GM in Sodium Chloride 0.9% 50 ML IV SCH ×2 (01:52→07:58)
[2019-06-17] MEDS: Ketorolac 30 MG/ML SDV IVPUSH SCH ×4 (04:06→20:54)
[2019-06-17] MEDS: Omeprazole 20 MG Cap.CR PO SCH (06:53)
[2019-06-17] MEDS: Bisacodyl 5 MG Tab PO SCH (07:59)
[2019-06-17] MEDS: Multivitamin Tab PO SCH (07:59)
--- NOTE | 2019-06-17 09:35 | PCM.SURGPN ---
- General Info Date of Service: 06/17/19 Date of Surgery/Procedure: 06/15/19 POD#: 2 Functional Status: Reports: Pain Controlled, Tolerating Diet, Ambulating, Urinating - Review of Systems General: Reports: No Symptoms HEENT: Reports: No Symptoms Pulmonary: Reports: No Symptoms Cardiovascular: Reports: No Symptoms Gastrointestinal: Reports: No Symptoms Genitourinary: Reports: No Symptoms Musculoskeletal: Reports: No Symptoms Skin: Reports: No Symptoms - Patient Data Vitals - Most Recent: Last Vital Signs Temp 36.6 C 06/17/19 08:00 Pulse 73 06/17/19 08:00 Resp 16 06/17/19 08:00 BP 133/80 06/17/19 08:00 Pulse Ox 98 06/17/19 08:00 Weight - Most Recent: 115.4 kg I&O - Last 24 Hours: Intake & Output 06/16/19 06/17/19 06/17/19 22:59 06:59 14:59 Intake Total 1450 2030 Output Total 1290 690 Balance 160 1340 Lab Results Last 24 Hrs: Laboratory Results - last 24 hr 06/17/19 Range/Units 06:20 WBC 7.49 (4.0-11.0) K/uL RBC 4.34 L (4.50-5.90) M/uL Hgb 13.3 (13.0-17.0) g/dL Hct 39.1 (38.0-50.0) % MCV 90.1 (80.0-98.0) fL MCH 30.6 (27.0-32.0) pg MCHC 34.0 (31.0-37.0) g/dL RDW Std Deviation 41.1 (28.0-62.0) fl RDW Coeff of Angelito 13 (11.0-15.0) % Plt Count 187 (150-400) K/uL MPV 11.30 (7.40-12.00) fL Nucleated RBC % 0.0 /100WBC Nucleated RBCs # 0 K/uL Azam Results Last 24 Hrs: Microbiology 06/15/19 08:00 Aerobic Blood Culture - Preliminary Blood - Venous - Lab Draw NO GROWTH AFTER 2 DAYS Anaerobic Blood Culture - Preliminary NO GROWTH AFTER 2 DAYS 06/15/19 07:51 Aerobic Blood Culture - Preliminary Blood - Venous NO GROWTH AFTER 2 DAYS Anaerobic Blood Culture - Preliminary NO GROWTH AFTER 2 DAYS Med Orders - Current: Current Medications Albuterol (Proventil Neb Soln) 2.5 mg NEB ONETIME PRN PRN Reason: Wheezing Atropine Sulfate (Atropine 0.1 Mg/Ml) 0.5 mg IVPUSH ASDIRECTED PRN PRN Reason: Hypo-perfusion Atropine Sulfate (Atropine 0.1 Mg/Ml) 1 mg IVPUSH ASDIRECTED PRN PRN Reason: Hypo-Perfusion Bisacodyl (Dulcolax) 5 mg PO DAILY COUNTS INCLUDE 234 BEDS AT THE [facility] Last Admin: 06/17/19 07:59 Dose: 5 mg Ciprofloxacin (Ciprofloxacin Hcl) 500 mg PO BID COUNTS INCLUDE 234 BEDS AT THE [facility] Dextrose/Water (Dextrose 50% In Water) 50 ml IVPUSH ASDIRECTED PRN PRN Reason: Hypoglycemia Diphenhydramine HCl (Benadryl) 25 mg IVPUSH Q4H PRN PRN Reason: Itching Epinephrine HCl (Epinephrine 1:10,000) 1 mg IVPUSH ASDIRECTED PRN PRN Reason: ACLS Guidelines Fentanyl (Sublimaze) 50 mcg IVPUSH Q5M PRN PRN Reason: Pain Hydromorphone HCl (Dilaudid) 0.5 mg IV Q1H PRN PRN Reason: Pain Hydromorphone HCl (Dilaudid) 0.5 mg IVPUSH Q1H PRN PRN Reason: Pain (severe 7-10) Last Admin: 06/15/19 17:27 Dose: 0.5 mg Ketorolac Tromethamine (Toradol) 30 mg IVPUSH Q6H COUNTS INCLUDE 234 BEDS AT THE [facility] Stop: 06/21/19 09:40 Last Admin: 06/17/19 04:06 Dose: 30 mg Metronidazole (Metronidazole) 250 mg PO Q6H COUNTS INCLUDE 234 BEDS AT THE [facility] Multivitamins/Minerals/Vitamin C (Tab-A-Caprice) 1 tab PO DAILY COUNTS INCLUDE 234 BEDS AT THE [facility] Last Admin: 06/17/19 07:59 Dose: 1 tab Naloxone HCl (Narcan) 0.1 mg IVPUSH ASDIRECTED PRN PRN Reason: Respiratory Depression Omeprazole (Omeprazole) 20 mg PO ACBREAKFAST COUNTS INCLUDE 234 BEDS AT THE [facility] Last Admin: 06/17/19 06:53 Dose: 20 mg Ondansetron HCl (Zofran) 4 mg IVPUSH Q6H PRN PRN Reason: Nausea/Vomiting Oxycodone/Acetaminophen (Percocet 325-5 Mg) 2 tab PO Q4H PRN PRN Reason: Pain (moderate 4-6) Last Admin: 06/17/19 01:47 Dose: 2 tab Polyethylene Glycol (Miralax) 17 gm PO BEDTIME [facility] Last Admin: 06/16/19 21:17 Dose: 17 gm Promethazine HCl (Phenergan) 25 mg IM Q6H PRN PRN Reason: Nausea Sodium Chloride (Saline Flush) 10 ml FLUSH ASDIRECTED PRN PRN Reason: Keep Vein Open Sodium Chloride (Saline Flush) 2.5 ml FLUSH ASDIRECTED PRN PRN Reason: Keep Vein Open Sodium Chloride (Normal Saline) 10 ml IV ASDIRECTED PRN PRN Reason: IV Use Discontinued Medications Bisacodyl (Dulcolax) 5 mg PO DAILY PRN PRN Reason: Constipation Bupivacaine HCl (Sensorcaine-Mpf 0.5%) Confirm Administered Dose 10 ml .ROUTE .STK-MED ONE Stop: 06/15/19 09:50 Bupivacaine HCl (Sensorcaine-Mpf 0.5%) Confirm Administered Dose 10 ml .ROUTE .STK-MED ONE Stop: 06/15/19 10:42 Cefazolin Sodium (Ancef) Confirm Administered Dose 1 gm .ROUTE .STK-MED ONE Stop: 06/15/19 11:41 Ephedrine Sulfate (Ephedrine Sulfate) Confirm Administered Dose 50 mg .ROUTE .STK-MED ONE Stop: 06/15/19 11:03 Fentanyl (Sublimaze) Confirm Administered Dose 250 mcg .ROUTE .STK-MED ONE Stop: 06/15/19 08:21 Fentanyl (Sublimaze) Confirm Administered Dose 100 mcg .ROUTE .STK-MED ONE Stop: 06/15/19 11:02 Sodium Chloride (Normal Saline) 1,000 mls @ 999 mls/hr IV STAT ONE Stop: 06/15/19 07:29 Last Admin: 06/15/19 06:47 Dose: 999 mls/hr Piperacillin Sod/Tazobactam (Sod 3.375 gm/ Sodium Chloride) 50 mls @ 100 mls/ hr IV ONETIME ONE Stop: 06/15/19 08:30 Last Admin: 06/15/19 08:09 Dose: 100 mls/hr Lactated Ringer's (Ringers, Lactated) 1,000 mls @ 150 mls/hr IV ASDIRECTED [facility]ANNES[facility] Last Admin: 06/16/19 00:36 Dose: 150 mls/hr Thiamine HCl 500 mg/ Sodium (Chloride) 255 mls @ 510 mls/hr IV ONETIME ONE Stop: 06/15/19 09:40 Last Admin: 06/15/19 09:45 Dose: 510 mls/hr Piperacillin Sod/Tazobactam (Sod 3.375 gm/ Sodium Chloride) 50 mls @ 100 mls/ hr IV Q6H COUNTS INCLUDE 234 BEDS AT THE [facility] Last Admin: 06/17/19 07:58 Dose: 100 mls/hr Lidocaine (Xylocaine-Mpf 2%) Confirm Administered Dose 5 ml .ROUTE .STK-MED ONE Stop: 06/15/19 08:21 Midazolam HCl (Versed 1 Mg/Ml) Confirm Administered Dose 2 mg .ROUTE .STK-MED ONE Stop: 06/15/19 08:21 Mineral Oil/White Petrolatum (Lacri-Lube S.O.P Oint) Confirm Administered Dose 3.5 gm .ROUTE .STK-MED ONE Stop: 06/15/19 10:23 Ondansetron HCl (Zofran) 4 mg IVPUSH ONETIME ONE Stop: 06/15/19 06:30 Last Admin: 06/15/19 06:47 Dose: 4 mg Ondansetron HCl (Zofran) Confirm Administered Dose 4 mg .ROUTE .STK-MED ONE Stop: 06/15/19 08:21 Phenylephrine HCl (Phenylephrine In Ns 100 Mcg/Ml) Confirm Administered Dose 1 mg .ROUTE .STK-MED ONE Stop: 06/15/19 10:34 Propofol (Diprivan 20 Ml) Confirm Administered Dose 200 mg .ROUTE .STK-MED ONE Stop: 06/15/19 08:21 Rocuronium [place] (Zemuron) Confirm Administered Dose 100 mg .ROUTE .STK-MED ONE Stop: 06/15/19 08:21 Succinylcholine Chloride (Succinylcholine Chloride) Confirm Administered Dose 200 mg .ROUTE .STK-MED ONE Stop: 06/15/19 08:21 - Exam Wound/Incisions: Healing Well, Dressing Dry and Intact, No Drainage, Drainage General: Alert, Oriented, Cooperative HEENT: Pupils Equal, Pupils Reactive Lungs: Clear to Auscultation, Normal Respiratory Effort Cardiovascular: Regular Rate, Regular Rhythm GI/Abdominal Exam: Soft, Non-Tender, No Distention, No Mass, Other (serous fluids in drain) Extremities: Normal Inspection Skin: Warm, Dry, Intact Neurological: No New Focal Deficit Psy/Mental Status: Alert, Normal Affect, Normal Mood - Problem List & Annotations (1) Alcohol abuse SNOMED Code(s): 60396681 Code(s): F10.10 - ALCOHOL ABUSE, UNCOMPLICATED Status: Acute Current Visit: Yes (2) Appendicitis SNOMED Code(s): 69741497 Code(s): K37 - UNSPECIFIED APPENDICITIS Status: Acute Current Visit: Yes - Problem List Review Problem List Initiated/Reviewed/Updated: Yes - My Orders Last 24 Hours: Active Orders 24 hr Category Date Time Status Regular Diet [DIET] Diet 06/17/19 Lunch Active CBC W/O DIFF,HEMOGRAM [HEME] AM Lab 06/18/19 05:11 Ordered CBC W/O DIFF,HEMOGRAM [HEME] AM Lab 06/19/19 05:11 Ordered CBC W/O DIFF,HEMOGRAM [HEME] AM Lab 06/20/19 05:11 Ordered CBC W/O DIFF,HEMOGRAM [HEME] AM Lab 06/21/19 05:11 Ordered Bisacodyl [Dulcolax] Med 06/16/19 09:45 Active 5 mg PO DAILY Ciprofloxacin [Ciprofloxacin HCl] Med 06/17/19 09:00 Active 500 mg PO BID Ketorolac [Toradol] Med 06/16/19 09:45 Active 30 mg IVPUSH Q6H Multivitamins [Tab-A-Caprice] Med 06/16/19 09:00 Active 1 tab PO DAILY Polyethylene Glycol 3350 [MiraLAX] Med 06/16/19 21:00 Active 17 gm PO BEDTIME metroNIDAZOLE Med 06/17/19 09:00 Active 250 mg PO Q6H Medication Orders Albuterol (Proventil Neb Soln) 2.5 mg NEB ONETIME PRN PRN Reason: Wheezing Atropine Sulfate (Atropine 0.1 Mg/Ml) 0.5 mg IVPUSH ASDIRECTED PRN PRN Reason: Hypo-perfusion Atropine Sulfate (Atropine 0.1 Mg/Ml) 1 mg IVPUSH ASDIRECTED PRN PRN Reason: Hypo-Perfusion Bisacodyl (Dulcolax) 5 mg PO DAILY [facility] Last Admin: 06/17/19 07:59 Dose: 5 mg Admin: 06/16/19 10:18 Dose: 5 mg Ciprofloxacin (Ciprofloxacin Hcl) 500 mg PO BID COUNTS INCLUDE 234 BEDS AT THE [facility] Dextrose/Water (Dextrose 50% In Water) 50 ml IVPUSH ASDIRECTED PRN PRN Reason: Hypoglycemia Diphenhydramine HCl (Benadryl) 25 mg IVPUSH Q4H PRN PRN Reason: Itching Epinephrine HCl (Epinephrine 1:10,000) 1 mg IVPUSH ASDIRECTED PRN PRN Reason: ACLS Guidelines Fentanyl (Sublimaze) 50 mcg IVPUSH Q5M PRN PRN Reason: Pain Hydromorphone HCl (Dilaudid) 0.5 mg IV Q1H PRN PRN Reason: Pain Hydromorphone HCl (Dilaudid) 0.5 mg IVPUSH Q1H PRN PRN Reason: Pain (severe 7-10) Last Admin: 06/15/19 17:27 Dose: 0.5 mg Ketorolac Tromethamine (Toradol) 30 mg IVPUSH Q6H COUNTS INCLUDE 234 BEDS AT THE [facility] Stop: 06/21/19 09:40 Last Admin: 06/17/19 04:06 Dose: 30 mg Admin: 06/16/19 21:11 Dose: 30 mg Admin: 06/16/19 16:06 Dose: 30 mg Admin: 06/16/19 10:17 Dose: 30 mg Metronidazole (Metronidazole) 250 mg PO Q6H COUNTS INCLUDE 234 BEDS AT THE [facility] Multivitamins/Minerals/Vitamin C (Tab-A-Caprice) 1 tab PO DAILY COUNTS INCLUDE 234 BEDS AT THE [facility] Last Admin: 06/17/19 07:59 Dose: 1 tab Admin: 06/16/19 08:03 Dose: 1 tab Naloxone HCl (Narcan) 0.1 mg IVPUSH ASDIRECTED PRN PRN Reason: Respiratory Depression Omeprazole (Omeprazole) 20 mg PO ACBREAKFAST COUNTS INCLUDE 234 BEDS AT THE [facility] Last Admin: 06/17/19 06:53 Dose: 20 mg Admin: 06/16/19 07:10 Dose: 20 mg Ondansetron HCl (Zofran) 4 mg IVPUSH Q6H PRN PRN Reason: Nausea/Vomiting Oxycodone/Acetaminophen (Percocet 325-5 Mg) 2 tab PO Q4H PRN PRN Reason: Pain (moderate 4-6) Last Admin: 06/17/19 01:47 Dose: 2 tab Admin: 06/16/19 08:08 Dose: 2 tab Admin: 06/16/19 04:36 Dose: 2 tab Admin: 06/16/19 00:37 Dose: 2 tab Admin: 06/15/19 19:58 Dose: 2 tab Admin: 06/15/19 15:31 Dose: 2 tab Polyethylene Glycol (Miralax) 17 gm PO BEDTIME [facility] Last Admin: 06/16/19 21:17 Dose: 17 gm Promethazine HCl (Phenergan) 25 mg IM Q6H PRN PRN Reason: Nausea Sodium Chloride (Saline Flush) 10 ml FLUSH ASDIRECTED PRN PRN Reason: Keep Vein Open Sodium Chloride (Saline Flush) 2.5 ml FLUSH ASDIRECTED PRN PRN Reason: Keep Vein Open Sodium Chloride (Normal Saline) 10 ml IV ASDIRECTED PRN PRN Reason: IV Use - Plan Plan (Free Text/Narrative):: -RLQ drain removed this am. -Ok to shower. Replace RLQ drain site dressing after shower. -Advance diet to regular -D/C zosyn. Start oral cipro and flagyl -D/C home tomorrow if no acute events today.
[2019-06-17] MEDS: metroNIDAZOLE 250 MG Tab PO SCH ×3 (09:52→20:30)
[2019-06-17] MEDS: Ciprofloxacin 500 MG Tab PO SCH ×2 (09:52→20:29)
[2019-06-17] MEDS: Polyethylene Glycol 3350 Powder 17 GM Packet PO SCH (20:30)
[2019-06-18] MEDS: metroNIDAZOLE 250 MG Tab PO SCH ×2 (03:30→08:20)
[2019-06-18] MEDS: Ketorolac 30 MG/ML SDV IVPUSH SCH ×2 (03:31→10:12)
[2019-06-18] MEDS: Omeprazole 20 MG Cap.CR PO SCH (07:22)
--- NOTE | 2019-06-18 07:26 | PCM.DCSUM1 ---
Discharge Summary - Hospital Course Free Text/Narrative:: Patient is a 44-year-old male who presented to the emergency room with one day of abdominal pain. The patient a leukocytosis and CT the abdomen and pelvis showed acute appendicitis with a large phlegmon in the right lower quadrant. He' s taken to the operating room. I attempted to perform a appendectomy laparoscopically however the patient had a lot of inflammation right lower quadrant is oriented to convert to open. The patient had a necrotic retrocecal appendix and a perforated and encased itself in the surrounding small bowel. Was able to safely remove the appendix and place a drain. Postoperatively he did well with no acute complications. He was kept on IV antibiotics until his white blood cell count came down to normal. On postop day 1 he was noted to be distended and so he was kept on clear liquids. His drain had serous output and was removed. A bowel regiment with MiraLAX and localized was started. That evening he had 2 bowel movements and his distention improved. He was advanced to regular diet and switch to oral antibiotics on postop day 2. He tolerated this well. His pain is well-controlled on Toradol and Percocet. His vital signs remained stable. He was cleared for discharge. - Discharge Data Discharge Date: 06/18/19 Discharge Disposition: Home, Self-Care 01 Condition: Good - Referral to Home Health Primary Care Physician: PCP None - Discharge Diagnosis/Problem(s) (1) Alcohol abuse SNOMED Code(s): 62235513 ICD Code: F10.10 - ALCOHOL ABUSE, UNCOMPLICATED Status: Acute Current Visit: Yes (2) Appendicitis SNOMED Code(s): 19446820 ICD Code: K37 - UNSPECIFIED APPENDICITIS Status: Acute Current Visit: Yes - Patient Summary/Data Operative Procedure(s) Performed: Laparoscopic converted to open appendectomy - Patient Instructions Diet: Regular Diet as Tolerated, Drink 8-10+ Glasses/Day Activity: No Lifting Over 20 Pounds (for six weeks ), Rest and Relax Today Driving: Do Not Drive (for one week after surgery ) Showering/Bathing: May Shower, No Tub Bathing/Swimming (for 2 weeks after surgery ) Notify Provider of: Fever, Increased Pain, Swelling and Redness, Drainage, Nausea and/or Vomiting Other/Special Instructions: Follow up in clinic in 7-10 days after surgery to remove pauly. - Discharge Plan *PRESCRIPTION DRUG MONITORING PROGRAM REVIEWED*: Yes *COPY OF PRESCRIPTION DRUG MONITORING REPORT IN PATIENT MARSHA: Yes Home Medications: Home Meds Acetaminophen/Diphenhydramine [Tylenol Pm Ex-Strength Caplet] 2 tab PO BEDTIME PRN 06/15/19 [History] Patient Handouts: Acetaminophen; Oxycodone tablets, Ciprofloxacin oral suspension, Open Appendectomy, Care After, Ketorolac tablets, Appendicitis, Easy -to-Read Referrals: Brit Alas MD [Physician] - 06/27/19 1:00 pm (Arrive 15 minutes early with an insurance card and photo ID) - Discharge Summary/Plan Comment DC Time >30 min.: No - General Info Functional Status: Reports: Pain Controlled, Tolerating Diet, Ambulating, Urinating. Denies: New Symptoms - Review of Systems General: Reports: No Symptoms HEENT: Reports: No Symptoms Pulmonary: Reports: No Symptoms Cardiovascular: Reports: No Symptoms Gastrointestinal: Reports: No Symptoms Genitourinary: Reports: No Symptoms Musculoskeletal: Reports: No Symptoms - Patient Data Vitals - Most Recent: Last Vital Signs Temp 36.4 C 06/18/19 03:29 Pulse 65 06/18/19 03:29 Resp 16 06/18/19 03:29 BP 130/86 06/18/19 03:29 Pulse Ox 95 06/18/19 03:29 Weight - Most Recent: 115.4 kg I&O - Last 24 hours: Intake & Output 06/17/19 06/18/19 06/18/19 22:59 06:59 14:59 Intake Total 640 900 Output Total 830 Balance -190 900 VANESSA Results - Last 24 hrs: Microbiology 06/15/19 08:00 Aerobic Blood Culture - Preliminary Blood - Venous - Lab Draw NO GROWTH AFTER 2 DAYS Anaerobic Blood Culture - Preliminary NO GROWTH AFTER 2 DAYS 06/15/19 07:51 Aerobic Blood Culture - Preliminary Blood - Venous NO GROWTH AFTER 2 DAYS Anaerobic Blood Culture - Preliminary NO GROWTH AFTER 2 DAYS Med Orders - Current: Current Medications Albuterol (Proventil Neb Soln) 2.5 mg NEB ONETIME PRN PRN Reason: Wheezing Atropine Sulfate (Atropine 0.1 Mg/Ml) 0.5 mg IVPUSH ASDIRECTED PRN PRN Reason: Hypo-perfusion Atropine Sulfate (Atropine 0.1 Mg/Ml) 1 mg IVPUSH ASDIRECTED PRN PRN Reason: Hypo-Perfusion Bisacodyl (Dulcolax) 5 mg PO DAILY [facility] Last Admin: 06/17/19 07:59 Dose: 5 mg Ciprofloxacin (Ciprofloxacin Hcl) 500 mg PO BID [facility] Last Admin: 06/17/19 20:29 Dose: 500 mg Dextrose/Water (Dextrose 50% In Water) 50 ml IVPUSH ASDIRECTED PRN PRN Reason: Hypoglycemia Diphenhydramine HCl (Benadryl) 25 mg IVPUSH Q4H PRN PRN Reason: Itching Epinephrine HCl (Epinephrine 1:10,000) 1 mg IVPUSH ASDIRECTED PRN PRN Reason: ACLS Guidelines Fentanyl (Sublimaze) 50 mcg IVPUSH Q5M PRN PRN Reason: Pain Hydromorphone HCl (Dilaudid) 0.5 mg IV Q1H PRN PRN Reason: Pain Hydromorphone HCl (Dilaudid) 0.5 mg IVPUSH Q1H PRN PRN Reason: Pain (severe 7-10) Last Admin: 06/15/19 17:27 Dose: 0.5 mg Ketorolac Tromethamine (Toradol) 30 mg IVPUSH Q6H [facility] Stop: 06/21/19 09:40 Last Admin: 06/18/19 03:31 Dose: 30 mg Metronidazole (Metronidazole) 250 mg PO Q6H [facility] Last Admin: 06/18/19 03:30 Dose: 250 mg Multivitamins/Minerals/Vitamin C (Tab-A-Caprice) 1 tab PO DAILY [facility] Last Admin: 06/17/19 07:59 Dose: 1 tab Naloxone HCl (Narcan) 0.1 mg IVPUSH ASDIRECTED PRN PRN Reason: Respiratory Depression Omeprazole (Omeprazole) 20 mg PO ACBREAKFAST [facility] Last Admin: 06/18/19 07:22 Dose: 20 mg Ondansetron HCl (Zofran) 4 mg IVPUSH Q6H PRN PRN Reason: Nausea/Vomiting Oxycodone/Acetaminophen (Percocet 325-5 Mg) 2 tab PO Q4H PRN PRN Reason: Pain (moderate 4-6) Last Admin: 06/17/19 20:34 Dose: 2 tab Polyethylene Glycol (Miralax) 17 gm PO BEDTIME [facility] Last Admin: 06/17/19 20:30 Dose: Not Given Promethazine HCl (Phenergan) 25 mg IM Q6H PRN PRN Reason: Nausea Sodium Chloride (Saline Flush) 10 ml FLUSH ASDIRECTED PRN PRN Reason: Keep Vein Open Sodium Chloride (Saline Flush) 2.5 ml FLUSH ASDIRECTED PRN PRN Reason: Keep Vein Open Sodium Chloride (Normal Saline) 10 ml IV ASDIRECTED PRN PRN Reason: IV Use Discontinued Medications Bisacodyl (Dulcolax) 5 mg PO DAILY PRN PRN Reason: Constipation Bupivacaine HCl (Sensorcaine-Mpf 0.5%) Confirm Administered Dose 10 ml .ROUTE .STK-MED ONE Stop: 06/15/19 09:50 Bupivacaine HCl (Sensorcaine-Mpf 0.5%) Confirm Administered Dose 10 ml .ROUTE .STK-MED ONE Stop: 06/15/19 10:42 Cefazolin Sodium (Ancef) Confirm Administered Dose 1 gm .ROUTE .STK-MED ONE Stop: 06/15/19 11:41 Ephedrine Sulfate (Ephedrine Sulfate) Confirm Administered Dose 50 mg .ROUTE .STK-MED ONE Stop: 06/15/19 11:03 Fentanyl (Sublimaze) Confirm Administered Dose 250 mcg .ROUTE .STK-MED ONE Stop: 06/15/19 08:21 Fentanyl (Sublimaze) Confirm Administered Dose 100 mcg .ROUTE .STK-MED ONE Stop: 06/15/19 11:02 Sodium Chloride (Normal Saline) 1,000 mls @ 999 mls/hr IV STAT ONE Stop: 06/15/19 07:29 Last Admin: 06/15/19 06:47 Dose: 999 mls/hr Piperacillin Sod/Tazobactam (Sod 3.375 gm/ Sodium Chloride) 50 mls @ 100 mls/ hr IV ONETIME ONE Stop: 06/15/19 08:30 Last Admin: 06/15/19 08:09 Dose: 100 mls/hr Lactated Ringer's (Ringers, Lactated) 1,000 mls @ 150 mls/hr IV ASDIRECTED [facility] Last Admin: 06/16/19 00:36 Dose: 150 mls/hr Thiamine HCl 500 mg/ Sodium (Chloride) 255 mls @ 510 mls/hr IV ONETIME ONE Stop: 06/15/19 09:40 Last Admin: 06/15/19 09:45 Dose: 510 mls/hr Piperacillin Sod/Tazobactam (Sod 3.375 gm/ Sodium Chloride) 50 mls @ 100 mls/ hr IV Q6H [facility] Last Admin: 06/17/19 07:58 Dose: 100 mls/hr Lidocaine (Xylocaine-Mpf 2%) Confirm Administered Dose 5 ml .ROUTE .STK-MED ONE Stop: 06/15/19 08:21 Midazolam HCl (Versed 1 Mg/Ml) Confirm Administered Dose 2 mg .ROUTE .STK-MED ONE Stop: 06/15/19 08:21 Mineral Oil/White Petrolatum (Lacri-Lube S.O.P Oint) Confirm Administered Dose 3.5 gm .ROUTE .STK-MED ONE Stop: 06/15/19 10:23 Ondansetron HCl (Zofran) 4 mg IVPUSH ONETIME ONE Stop: 06/15/19 06:30 Last Admin: 06/15/19 06:47 Dose: 4 mg Ondansetron HCl (Zofran) Confirm Administered Dose 4 mg .ROUTE .STK-MED ONE Stop: 06/15/19 08:21 Phenylephrine HCl (Phenylephrine In Ns 100 Mcg/Ml) Confirm Administered Dose 1 mg .ROUTE .STK-MED ONE Stop: 06/15/19 10:34 Propofol (Diprivan 20 Ml) Confirm Administered Dose 200 mg .ROUTE .STK-MED ONE Stop: 06/15/19 08:21 Rocuronium [place] (Zemuron) Confirm Administered Dose 100 mg .ROUTE .STK-MED ONE Stop: 06/15/19 08:21 Succinylcholine Chloride (Succinylcholine Chloride) Confirm Administered Dose 200 mg .ROUTE .STK-MED ONE Stop: 06/15/19 08:21 - Exam General: Reports: Alert, Oriented HEENT: Reports: Pupils Equal, Pupils Reactive Lungs: Reports: Normal Respiratory Effort Cardiovascular: Reports: Regular Rate GI/Abdominal Exam: Soft, Non-Tender, No Distention, No Mass Skin: Reports: Warm, Dry, Intact Wound/Incisions: Reports: Healing Well
[2019-06-18] MEDS: Bisacodyl 5 MG Tab PO SCH (08:20)
[2019-06-18] MEDS: Ciprofloxacin 500 MG Tab PO SCH (08:20)
[2019-06-18] MEDS: Multivitamin Tab PO SCH (08:20)
[2019-06-18 13:59] VITALS: BP 131/89; PULSE 64
--- NOTE | 2019-06-18 16:39 | OR ---
SURGEON: BRIT MORELOS MD DATE OF PROCEDURE: 06/15/2019 PREOPERATIVE DIAGNOSIS: Acute appendicitis. POSTOPERATIVE DIAGNOSIS: Necrotic appendicitis with perforation. OPERATIVE PROCEDURE: Laparoscopic converted to open appendectomy PRIMARY SURGEON: Brit Morelos MD. ANESTHESIA: General endotracheal anesthesia. FLUIDS: 2500 mL of crystalloid. ESTIMATED BLOOD LOSS: 25 mL. URINE OUTPUT: 200 mL. FINDINGS: Necrotic retrocecal perforated appendix encased in inflammatory rind and small bowel associated with a small abscess. COMPLICATIONS: None. INDICATIONS: The patient is a 44-year-old male, who presents with 1 day of abdominal pain. He was brought into the emergency room. His vital signs were stable. He had an elevated white blood cell count and a CT scan of the abdomen and pelvis showed acute appendicitis with a large phlegmon in the right lower quadrant. The patient and I discussed the need for an appendectomy. I explained the procedure, expected perioperative course, and the risks including bleeding, infection, or damage to surrounding structures. I would attempt this laparoscopically, but should I be unable to complete it safely, I would convert to open. The patient verbalized understanding and wishes to proceed. PROCEDURE IN DETAIL: The patient was brought into the OR and placed on the OR table in supine position. A time-out was completed verifying the patient's name, age, date of , allergies, and procedure to be performed. General endotracheal anesthesia was induced. The left arm was tucked to the patient's side and a Romero catheter placed. The patient's abdomen was prepped and draped in usual standard fashion. I anesthetized an area 3 fingerbreadths below the left subcostal margin in the midclavicular line with 0.5% Marcaine plain. An 11 blade was used to make a 1 cm incision in this area. A 5 mm optical trocar was used to gain entry into the left upper quadrant under direct visualization. All layers of the abdominal wall were visualized upon entry. The abdomen was insufflated, and I inserted a 5-mm 30-degree scope into the abdomen. I inspected the area underneath my initial trocar placement. No damage to surrounding structures was noted. I turned my attention to the left side of the abdomen. A 5 mm trocar was placed under direct visualization just left and lateral to the umbilicus. A 12 mm trocar was then placed along the lower midline under direct visualization. The patient was placed into Trendelenburg position and I turned my attention to the right lower quadrant. I swept the small bowel into the upper quadrants and identified the ascending colon. I followed the tenia down to the cecum. The cecum was surrounded by purulent- appearing fluid and was encased in an inflammatory rind and involved the small bowel. I attempted to gently sweep this away, but was unable to do so. Given the severe inflammatory reaction in the right lower quadrant, the decision was made to convert to an open procedure to allow direct visualization of the anatomic structures and digital dissection. I closed the 12 mm trocar site fascia using an interrupted 0 Vicryl suture using a Robby-Denise device. I palpated the fascia and appeared to be closed appropriately. I left my [address] and maintained my pneumoperitoneum. I then went to the right side of the patient and performed a right lower quadrant oblique incision over Mcclure's point. Cautery was used to dissect down through the layers of the abdominal wall. The peritoneum was elevated with hemostats and incised sharply with Metzenbaum scissors. Entry into the abdomen was confirmed with decompression of my pneumoperitoneum. The 5 mm trocars were then removed and the CO2 was turned off. I extended my incision medially and laterally. Moistened laps and retractors were placed to allow visualization of the cecum and surrounding small bowel. I swept my finger underneath the cecum and palpated the base of my appendix. The base of the appendix was located retrocecally and more towards the medial side. I then turned my attention to the small bowel that was overlying the cecum anteriorly. This was swept away gently and all adhesions were broken apart using simple finger dissection. I was unable to get down to the base of my appendix. The appendix itself appeared inflamed and enlarged. I followed it from the base distally. The distal aspect of the appendix was encased in an inflammatory rind. In the midportion of the appendix, it appeared to be necrotic and perforated. Just distal to that was an abscess cavity that was completely encased in small bowel. I was able to gently dissect the appendix away from all of these structures and mobilize it. I then took a Harmonic scalpel device and took down the appendiceal mesentery along the body of the appendix itself. This was carried in distal to proximal fashion taking great care to avoid damage to surrounding structures. Once the appendix was completely mobilized free from the appendiceal mesentery, I used a 45 mm blue load stapling device to staple and transect across the base of the appendix. The appendix was passed off the field and sent to pathology. I copiously irrigated the right lower quadrant with warm normal saline/Ancef solution. This was then suctioned away. The appendiceal mesentery was slightly oozy, so I placed a piece of Surgicel along it. With the use of Surgicel, hemostasis was achieved. The base of the appendix appeared grossly uninvolved, but in order to ensure that there will be no complications, I inverted and then oversewed my staple line using a 3-0 Vicryl suture. A 19-Telugu Tano drain was then placed just medial to the incision and laid along the pericolic gutter and looped on top of the large intestine. It was secured to the skin using a 2-0 silk suture. I then closed the layers of the abdominal wall with running 0 Vicryl sutures. The subcutaneous fat layer was closed with a running 3-0 Vicryl stitch. The skin of the oblique incision as well as the port sites were closed with suture pauly. Sterile dressings were applied. The patient tolerated the procedure well and was taken to the PACU in stable condition. ROSITA BOCANEGRA /[id number]
== END 2019-06-18 13:30 | disposition home or self-care (01) | DRG 340 ==
LOC: MW.ED 06:22 → MW.SDS 07:49 → MW.MS 12:42
PROVIDERS: ADMIT Surgery; ATTEND Surgery
PROC: 0DTJ0ZZ Resection of Appendix, Open Approach (ICD-10-PCS; principal; 2019-06-15)
PROC: 0WJG4ZZ Inspection of Peritoneal Cavity, Percutaneous Endoscopic Approach (ICD-10-PCS; 2019-06-15)
DX: K35.32 Acute appendicitis with perforation, localized peritonitis, and gangrene, without abscess (principal); F41.9 Anxiety disorder, unspecified; F32.9 Major depressive disorder, single episode, unspecified; F10.10 Alcohol abuse, uncomplicated
CPT/HCPCS: 36415; 71045; 71045-26; 74176; 74176-26; 80048; 80053; 80305-QW; 81003; 83605; 83690; 83880; 85025; 85027; 85610; 87040; 88304; 96361; 96365; 96375; 99285-25; A9270-GY; G0480; J0330; J0690; J1170; J1885; J2001; J2250; J2370; J2405; J2543; J2704; J3010; J3411; J3490; J7030; J7050; J7120